=== PATIENT | male | born 1950 | race Caucasian/White ===

== ENCOUNTER 2022-08-11 07:48 | Day surgery (SDC) | payer OTHER ==
[2022-08-08 09:28] VITALS: BMI 24.8
[2022-08-11] MEDS ORDERED: Lidocaine 1% MPF 2 ML VIAL ONE (08:26)
[2022-08-11] MEDS ORDERED: PROPOFOL 20 ML ONE ×4 (08:54→09:36)
== END 2022-08-11 10:31 | disposition home or self-care (01) ==
LOC: CSHSDC 07:48
PROVIDERS: ATTEND Internal Medicine Gastroenterology
PROC: 0DBL8ZZ Excision of Transverse Colon, Via Natural or Artificial Opening Endoscopic (ICD-10-PCS; principal; 2022-08-11)
DX: Z12.11 Encounter for screening for malignant neoplasm of colon (principal); K63.5 Polyp of colon; K57.30 Diverticulosis of large intestine without perforation or abscess without bleeding; K64.9 Unspecified hemorrhoids; K21.9 Gastro-esophageal reflux disease without esophagitis; Z79.899 Other long term (current) drug therapy; F17.200 Nicotine dependence, unspecified, uncomplicated
CPT/HCPCS: 88305; J2704